=== PATIENT | female | born 1940 | race Hispanic/Latino ===

== ENCOUNTER 2016-10-06 07:41 | Emergency (ER) | payer SELFPAY ==
--- NOTE | 2016-10-06 09:07 | Emergency Department Report ---
HPI - General Chief Complaint: Allergic Reaction Time Seen by Provider: 10/06/16 09:03 ED Past Medical Hx - Past Medical History Previous Medical History?: Yes Hx Diabetes: Yes Additional medical history: thyroid problems - Surgical History Past Surgical History?: No - Social History Smoking Status: Current Every Day Smoker Substance Use Type: Prescribed ED Review of Systems ROS: Stated complaint: BITE ON NECK, ALLERGIC REACTION Other details as noted in HPI Physical Exam - Physical Exam Vital Signs: Vital Signs 10/06/16 08:05 Temperature 97.8 F Pulse Rate 94 H Respiratory 18 Rate Blood Pressure 169/73 O2 Sat by Pulse 99 Oximetry ED Course Vital Signs 10/06/16 08:05 Temperature 97.8 F Pulse Rate 94 H Respiratory 18 Rate Blood Pressure 169/73 O2 Sat by Pulse 99 Oximetry Critical care attestation.: If time is entered above; I have spent that time in minutes in the direct care of this critically ill patient, excluding procedure time. ED Disposition Condition: Stable Referrals: PRIMARY CARE, [Primary Care Provider] - 3-5 Days
--- NOTE | 2016-10-06 09:14 | Emergency Department Report ---
ED Abdominal Pain HPI - General Chief Complaint: Allergic Reaction Stated Complaint: BITE ON NECK, ALLERGIC REACTION Time Seen by Provider: 10/06/16 09:03 Source: patient, EMS Mode of arrival: Ambulatory Limitations: No Limitations - History of Present Illness Initial Comments: Patient is a fairly a psych patient from [facility] that arrived via EMS today complaining initially of rash from bedbugs later complaints turned into severe abdominal pain and diarrhea. Patient also states she needs to see a meat market manager something to do with the bedbugs at the facility that she is at and wants a nurse and myself to strip her down and check her for bugs. Patient also states they're washing the dishes there with dirty water. MD Complaint: abdominal pain - Related Data Previous Rx's Medication Instructions Recorded Last Taken Type Permethrin [Elimite] 60 gm TP DAILY #1 cream..g. 10/06/16 Unknown Rx hydrOXYzine PAMOATE [Vistaril] 25 mg PO Q6HR PRN #10 capsule 10/06/16 Unknown Rx Allergies Allergy/AdvReac Type Severity Reaction Status Date / Time No Known Allergies Allergy Verified 10/06/16 10:34 ED Review of Systems ROS: Stated complaint: BITE ON NECK, ALLERGIC REACTION Other details as noted in HPI ED Past Medical Hx - Past Medical History Previous Medical History?: Yes Hx Diabetes: Yes Additional medical history: thyroid problems - Surgical History Past Surgical History?: No - Social History Smoking Status: Current Every Day Smoker Substance Use Type: Prescribed - Medications Home Medications: Home Medications Medication Instructions Recorded Confirmed Last Taken Type Permethrin [Elimite] 60 gm TP DAILY #1 cream..g. 10/06/16 Unknown Rx hydrOXYzine PAMOATE [Vistaril] 25 mg PO Q6HR PRN #10 capsule 10/06/16 Unknown Rx ED Physical Exam - General Limitations: No Limitations General appearance: alert, in no apparent distress - Head Head exam: Present: atraumatic, normocephalic - Eye Eye exam: Present: normal appearance, PERRL, EOMI - ENT ENT exam: Present: mucous membranes moist - Neck Neck exam: Present: normal inspection, full ROM - Respiratory Respiratory exam: Present: normal lung sounds bilaterally. Absent: respiratory distress, wheezes, rales, rhonchi, stridor - Cardiovascular Cardiovascular Exam: Present: regular rate. Absent: systolic murmur, diastolic murmur, rubs, gallop - GI/Abdominal GI/Abdominal exam: Present: soft, tenderness (diffuse tenderness). Absent: guarding, rebound, rigid, mass, pulsatile mass - Extremities Exam Extremities exam: Present: normal inspection - Back Exam Back exam: Present: normal inspection. Absent: CVA tenderness (R), CVA tenderness (L) - Neurological Exam Neurological exam: Present: alert, normal gait - Psychiatric Psychiatric exam: Present: agitated, anxious - Skin Skin exam: Present: warm, dry, intact, normal color. Absent: rash, cyanosis, diaphoretic, erythema, urticaria, vesicles, petechiae, pallor, abrasion, ecchymosis ED Course Vital Signs 10/06/16 08:05 Temperature 97.8 F Pulse Rate 94 H Respiratory 18 Rate Blood Pressure 169/73 O2 Sat by Pulse 99 Oximetry - Reevaluation(s) Reevaluation #1: 10/06/16 13:44 Patient still in no distress standing in the hallway staring at people, normal cardiac afebrile we'll discharge patient with Elimite even though it is not believe she has infestation. ED Medical Decision Making - Lab Data Result diagrams: 10/06/16 09:26 10/06/16 09:26 Critical care attestation.: If time is entered above; I have spent that time in minutes in the direct care of this critically ill patient, excluding procedure time. ED Disposition Clinical Impression: Rash and nonspecific skin eruption Disposition: DISCHARGED TO HOME OR SELFCARE Is pt being admited?: No Condition: Stable Instructions: Acute Rash (ED) Prescriptions: hydrOXYzine PAMOATE [Vistaril] 25 mg PO Q6HR PRN #10 capsule PRN Reason: Itching Permethrin [Elimite] 60 gm TP DAILY #1 cream..g. Referrals: PRIMARY CARE,MD [Primary Care Provider] - 3-5 Days
[2016-10-06 09:42] LABS: Basophils % (Auto) 0.5 % (0.0-1.8); Eosinophils % (Auto) 1.3 % (0.0-4.3); Hematocrit 39.1 % (30.3-42.9); Hemoglobin 12.9 gm/dl (10.1-14.3); Mean Corpuscular HGB Conc 33 % (30-34); Mean Corpuscular Hemoglobin 29 pg (28-32); Mean Corpuscular Volume 87 fl (79-97); Platelet Count 261 K/mm3 (140-440); Red Blood Count 4.49 M/mm3 (3.65-5.03); Red Cell Distribution Width 15.2 % (13.2-15.2); White Blood Count 9.6 K/mm3 (4.5-11.0)
[2016-10-06 09:52] LABS: Bacteria,Urine 2+ /HPF (Negative); Bilirubin,Urine NEG (Negative); Blood,Urine MOD (Negative); Ketones,Urine NEG (Negative); Leukocyte Esterase,Urine LG (Negative); Nitrite,Urine NEG (Negative); Protein,Urine <15 mg/dL mg/dL (Negative); Urobilinogen,Urine < 2.0 mg/dL (<2.0)
[2016-10-06 09:59] LABS: Alanine Aminotransferase 31 units/L (7-56); Albumin 4.1 g/dL (3.9-5); Albumin/Globulin Ratio 1.3 %; Alkaline Phosphatase 153 units/L (35-129); Anion Gap 18 mmol/L; BUN/Creatinine Ratio 23.33; Blood Urea Nitrogen 14 mg/dL (7-17); Calcium 9.3 mg/dL (8.4-10.2); Carbon Dioxide 24 mmol/L (22-30); Chloride 99.1 mmol/L (98-107); Glucose 162 mg/dL (65-100); Lipase 43 units/L (13-60); Sodium 137 mmol/L (137-145); Total Protein 7.2 g/dL (6.3-8.2)
[2016-10-06] MEDS ORDERED: NACL ONE ×2 (10:30→11:45)
--- NOTE | 2016-10-06 12:47 | Cat Scan Report ---
CT ABDOMEN AND PELVIS WITH CONTRAST INDICATION: Lower abdominal pain. COMPARISON: None similar at this institution. FINDINGS: Abdomen and pelvis CT performed following intravenous administration of 100 cc of Omnipaque 300. LUNG BASES: Slight bibasilar scarring. Mild increased AP chest diameter. Nonspecific distal esophageal wall prominence/thickening, not excluded for gastroesophageal reflux and/or hiatal hernia, amongst others. ABDOMEN: Subtle diffuse fatty hepatic infiltration possible without focal suspicious lesion or biliary dilatation. Small right hepatic calcified granulomas measuring up to 5 mm at the dome. Few small dependent gallstones measure up to 3-4 mm. Approximately 3.4 cm heterogeneous splenic enhancement on axial image 93, series 2, though filled in on the delayed phase. Small bilateral adrenal hypodense nodules measure up to 1 cm on the left. Nonaneurysmal abdominal aorta with atherosclerotic aortoiliac calcifications. Pancreas and IVC within normal limits. No hydronephrosis, though a large, 1.5 x 2.5 cm left upper renal pole calculus noted with small adjacent collecting system air as on axial image 125, series 2, amongst others. No ascites or significant adenopathy. Nonopacified GI tract evaluation limited, though grossly nonobstructive. Approximately 1.8 cm diverticulum at the junction of the second and third duodenal portions. Proximal to mid small bowel loops though demonstrate intraluminal debris as on axial image 34, series 4, amongst others. Maximum small bowel caliber approximately 3.2 cm, axial image 177, series 2. Normal appendix. Mild ascending and transverse colon stool. Decompressed descending colon with few diverticuli. Small fat containing umbilical hernia with a transverse neck of 1.1 cm. PELVIS: Small nondependent urinary bladder air as on axial image 81, series 4 presumed iatrogenic. Proximal sigmoid diverticulosis without acute inflammation. Grossly unremarkable uterus and adnexa/ovaries. No free fluid or significant adenopathy. Inguinal region fatty prominence measuring approximately 4 cm on the right and 2 cm on the left. Demineralized bones with mild lumbar spine degenerative spurring and lower lumbar vacuum disc phenomena. Approximately 2 cm T10 vertebral body hemangioma, mild bilateral SI joint degenerative changes and a 1.2 cm right iliac bone sclerotic focus on axial image 262, series 2 also noted. CONCLUSION: 1. No CT evidence of bowel obstruction, though jejunal CT appearance nonspecific and may represent a mild ileus, as described above. Please correlate. 2. Various other incidental findings, including possible COPD, distal esophageal prominence/thickening, fatty liver, cholelithiasis, splenic hemangioma, adrenal adenomas, nonobstructing left renal calculus, old healed granulomatous disease, diverticulosis, normal appendix, fat-containing umbilical hernia and small urinary bladder air, amongst others, as detailed above. Please correlate. Thank you for the opportunity to participate in this patient's care.
[2016-10-06 17:18] VITALS: BP 158/68
== END 2016-10-06 16:15 | disposition home or self-care (01) ==
LOC: ED 07:41
DX: R21 Rash and other nonspecific skin eruption (principal); R10.84 Generalized abdominal pain; R19.7 Diarrhea, unspecified; E11.9 Type 2 diabetes mellitus without complications; F17.200 Nicotine dependence, unspecified, uncomplicated
CPT/HCPCS: 36415; 74177; 80053; 81001; 83690; 85025; 99284; Q9967

== ENCOUNTER 2016-11-07 07:37 | Emergency (ER) | payer MEDICARE ==
[2016-11-07 08:47] LABS: Basophils % (Auto) 0.6 % (0.0-1.8); Eosinophils % (Auto) 1.3 % (0.0-4.3); Hemoglobin 12.5 gm/dl (10.1-14.3); Mean Corpuscular HGB Conc 34 % (30-34); Mean Corpuscular Hemoglobin 29 pg (28-32); Mean Corpuscular Volume 87 fl (79-97); Platelet Count 202 K/mm3 (140-440); Red Blood Count 4.24 M/mm3 (3.65-5.03); Red Cell Distribution Width 15.3 % (13.2-15.2); White Blood Count 6.9 K/mm3 (4.5-11.0)
[2016-11-07 09:00] LABS: Alanine Aminotransferase 103 units/L (7-56); Albumin 3.8 g/dL (3.9-5); Albumin/Globulin Ratio 1.4 %; Alkaline Phosphatase 185 units/L (35-129); Anion Gap 16 mmol/L; Blood Urea Nitrogen 12 mg/dL (7-17); Calcium 9.4 mg/dL (8.4-10.2); Carbon Dioxide 25 mmol/L (22-30); Chloride 103.8 mmol/L (98-107); Glucose 150 mg/dL (65-100); Lipase 44 units/L (13-60); Potassium 4.1 mmol/L (3.6-5.0); Sodium 141 mmol/L (137-145); Total Protein 6.6 g/dL (6.3-8.2)
[2016-11-07 15:20] VITALS: BP 179/68
[2016-11-07] MEDS ORDERED: TORADOL IM ONE (16:09)
--- NOTE | 2016-11-07 16:29 | Emergency Department Report ---
ED Back Pain/Injury HPI - General Chief Complaint: Abdominal Pain Stated Complaint: RT SIDE PAIN Time Seen by Provider: 11/07/16 16:02 Source: patient, EMS Limitations: Physical Limitation - History of Present Illness Initial Comments: Patient is 76-year-old female who presents emergency Department with complaint of left back and hip pain. Patient has not had any trauma. Denies falls. She is having difficulty walking and states it hurts to put weight on that foot. No numbness tingling. She's had no history of leg or hip injury. No bowel or bladder dysfunction. MD Complaint: back pain -: Gradual Similar Symptoms Previously: Yes (worse) Place: home Radiation: none, left leg Severity: mild, severe Quality: burning (radiates to tenderness) Consistency: constant Worsens With: movement, walking - Related Data Previous Rx's Medication Instructions Recorded Last Taken Type Permethrin [Elimite] 60 gm TP DAILY #1 cream..g. 10/06/16 Unknown Rx hydrOXYzine PAMOATE [Vistaril] 25 mg PO Q6HR PRN #10 capsule 10/06/16 Unknown Rx Ibuprofen [Motrin 600 MG tab] 600 mg PO Q8H PRN #30 tablet 11/07/16 Unknown Rx traMADol [Ultram 50 MG tab] 50 mg PO Q6HR PRN #15 tablet 11/07/16 Unknown Rx Allergies Allergy/AdvReac Type Severity Reaction Status Date / Time Penicillins Allergy Anaphylaxis Verified 11/07/16 08:19 ED Review of Systems ROS: Stated complaint: RT SIDE PAIN Other details as noted in HPI Constitutional: denies: chills, fever Eyes: denies: eye pain, eye discharge, vision change Respiratory: denies: cough, shortness of breath, wheezing Cardiovascular: denies: chest pain, palpitations Endocrine: no symptoms reported Gastrointestinal: diarrhea. denies: abdominal pain, nausea Genitourinary: denies: urgency, dysuria, discharge Musculoskeletal: back pain, arthralgia. denies: joint swelling Skin: denies: rash, lesions Neurological: denies: headache, weakness, paresthesias Psychiatric: denies: anxiety, depression Hematological/Lymphatic: denies: easy bleeding, easy bruising ED Past Medical Hx - Past Medical History Previous Medical History?: Yes Hx Diabetes: Yes Additional medical history: thyroid problems - Surgical History Past Surgical History?: No - Social History Smoking Status: Never Smoker Substance Use Type: None - Medications Home Medications: Home Medications Medication Instructions Recorded Confirmed Last Taken Type Permethrin [Elimite] 60 gm TP DAILY #1 cream..g. 10/06/16 Unknown Rx hydrOXYzine PAMOATE [Vistaril] 25 mg PO Q6HR PRN #10 capsule 10/06/16 Unknown Rx Ibuprofen [Motrin 600 MG tab] 600 mg PO Q8H PRN #30 tablet 11/07/16 Unknown Rx traMADol [Ultram 50 MG tab] 50 mg PO Q6HR PRN #15 tablet 11/07/16 Unknown Rx ED Physical Exam - General Limitations: Physical Limitation General appearance: alert, in no apparent distress - Head Head exam: Present: atraumatic, normocephalic - ENT ENT exam: Present: normal exam, normal orophraynx - Neck Neck exam: Present: normal inspection. Absent: tenderness, meningismus - Respiratory Respiratory exam: Present: normal lung sounds bilaterally, respiratory distress - Cardiovascular Cardiovascular Exam: Present: regular rate, normal rhythm - GI/Abdominal GI/Abdominal exam: Present: soft. Absent: distended - Expanded Lower Extremity Exam Right Hip exam: Present: normal inspection, full ROM. Absent: tenderness, swelling Upper Leg exam: Absent: normal inspection, full ROM, tenderness Foot/Toe exam: Absent: ecchymosis, deformity - Back Exam Back exam: Present: full ROM. Absent: tenderness, muscle spasm, paraspinal tenderness, vertebral tenderness ED Course Vital Signs 11/07/16 11/07/16 11/07/16 08:13 15:18 15:41 Temperature 98.4 F 98.5 F Pulse Rate 60 64 Respiratory 16 20 20 Rate Blood Pressure 133/79 Blood Pressure 179/68 [Left] O2 Sat by Pulse 97 98 99 Oximetry 11/07/16 16:35 Temperature Pulse Rate Respiratory 18 Rate Blood Pressure Blood Pressure [Left] O2 Sat by Pulse Oximetry ED Medical Decision Making - Lab Data Result diagrams: 11/07/16 08:28 11/07/16 08:28 Laboratory Results - last 24 hr 11/07/16 11/07/16 08:28 08:28 WBC 6.9 RBC 4.24 Hgb 12.5 Hct 37.0 MCV 87 MCH 29 MCHC 34 RDW 15.3 H Plt Count 202 Lymph % (Auto) 19.4 [place] % (Auto) 5.6 Eos % (Auto) 1.3 Baso % (Auto) 0.6 Lymph # 1.3 [place] # 0.4 Eos # 0.1 Baso # 0.0 Seg Neutrophils % 73.1 H Seg Neutrophils # 5.0 Sodium 141 Potassium 4.1 Chloride 103.8 Carbon Dioxide 25 Anion Gap 16 BUN 12 Creatinine 0.6 L Estimated GFR > 60 BUN/Creatinine Ratio 20.00 Glucose 150 H Calcium 9.4 Total Bilirubin 0.30 AST 42 H ALT 103 H Alkaline Phosphatase 185 H Total Protein 6.6 Albumin 3.8 L Albumin/Globulin Ratio 1.4 Lipase 44 - Medical Decision Making Patient is a 76-year-old female here with right hip pain and leg pain. Symptoms consistent with likely sciatica. She has not had symptoms of this before therefore we will x-ray lumbar spine although she is nontender. She has no concerning features of possible cauda equina. Labs are unremarkable. Plan treat with single dose of NSAIDs here in the emergency department. Plan a tree with NSAID and discharge with oral tramadol. Portions of this chart were dictated with dictation software. There may be dictation errors contained within this note. Critical care attestation.: If time is entered above; I have spent that time in minutes in the direct care of this critically ill patient, excluding procedure time. ED Disposition Clinical Impression: Back pain Disposition: DC-01 TO HOME OR SELFCARE Is pt being admited?: No Condition: Stable Instructions: Abdominal Pain (ED) Prescriptions: Ibuprofen [Motrin 600 MG tab] 600 mg PO Q8H PRN #30 tablet PRN Reason: Pain traMADol [Ultram 50 MG tab] 50 mg PO Q6HR PRN #15 tablet PRN Reason: Pain Referrals: PRIMARY CARE,MD [Primary Care Provider] - 3-5 Days
[2016-11-07] MEDS ORDERED: MOTRIN PO ONE ×2 (17:51→17:58)
[2016-11-07] MEDS ORDERED: ULTRAM ONE (17:51)
[2016-11-07] MEDS ORDERED: ULTRAM PO ONE (17:58)
--- NOTE | 2016-11-08 09:27 | XRay Report ---
LUMBAR SPINE THREE VIEWS: 11/07/16 CLINICAL: Back pain and left leg pain. FINDINGS: Mild levoscoliosis. L4-5 degenerative disc disease with disc space narrowing and osteophytes. The rest of the disc spaces are normal. Anterior osteophytes at all levels. Lower lumbar facet joint sclerosis. The pedicles are intact. No fracture. 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 IMPRESSION: Scoliosis and degenerative disc disease. Lower lumbar facet joint arthropathy. Left staghorn renal calculus.
== END 2016-11-07 18:24 | disposition home or self-care (01) ==
LOC: ED 07:37
DX: M54.9 Dorsalgia, unspecified (principal); E11.9 Type 2 diabetes mellitus without complications; Z88.0 Allergy status to penicillin
CPT/HCPCS: 36415; 72100; 80053; 83690; 85025; 96372; 99284; J1885